=== PATIENT | female | born 1955 | race Caucasian/White ===

== ENCOUNTER → 2023-07-31 14:07 | Outpatient (REF) | payer MEDICARE, OTHER, SELFPAY ==
[2023-07-31 15:30] LABS: FSH 36.2 mIU/ml; Free T4 0.75 ng/dl (0.78-2.19); Prolactin 10.5 ng/ml (3.0-18.6)
[2023-07-31 15:31] LABS: Free T3 3.01 pg/ml (2.77-5.27)
[2023-07-31 15:44] LABS: TSH 2.82 uIU/ml (0.47-4.68)
== END ==
LOC: REG 14:07
PROVIDERS: ATTENDING PHYSICIAN Nurse Practitioner
DX: I10 Essential (primary) hypertension (principal); E22.9 Hyperfunction of pituitary gland, unspecified; Q28.2 Arteriovenous malformation of cerebral vessels
CPT/HCPCS: 36415; 83001; 83002; 84146; 84439; 84443; 84481

== ENCOUNTER 2023-10-21 14:18 | Inpatient (IN) | payer MEDICARE, OTHER, SELFPAY ==
[2023-10-21] VITALS (9 sets, daily range): BP systolic 138–153; BP diastolic 72–103
--- NOTE | 2023-10-21 10:01 | ED.GENMED ---
History of Present Illness
General
Chief Complaint: Rectal Bleeding
Source: patient and spouse
Exam Limitations: none
Time Seen by Provider: 10/21/23 09:28
Nursing documentation reviewed up to this point in time: agreed with
Travel History
Have you had any contact with someone who has COVID-19?: No
Do you have any symptoms of coronavirus? Fever > 100 degrees, chills, cough, shortness of breath, sore throat, loss of taste or smell, muscle aches, or headache?: No
History of Present Illness
History of Present Illness:
Patient presents to ED secondary to multiple bowel movements at home which contained bloody products. Patient states that she woke up around 2 AM with lower abdominal cramping sensation. Patient got up and took Pepto-Bismol without relief in
symptoms. Shortly afterwards, patient had urge to have bowel movement. She was sitting on the toilet, when she felt nauseous and 'passed out'. She woke up in front of the toilet, with swelling in her forehead and right shoulder pain. Afterwards,
patient was able to stand back up and had small bowel movement, and when she looked, it appeared to be mucousy with blood around it. Since then, patient states that she has had at least 3-4 bowel movements with similar bloody content. Denies
previous history of similar symptoms. Patient recalls having colonoscopy 5 years ago, which showed diverticulosis. Patient does not take any blood thinning medications. Of note, patient has taken 2 doses of doxycycline, which was prescribed by
her primary care physician, secondary to skin irritation in her leg. Patient denies headache. Denies dizziness. No blurred vision. Denies loss of sensation or weakness. However, patient is complaining of right shoulder pain, with movement.
Denies chest pain or shortness of breath. Denies back pain.
Past History
Past History
ED Past Medical History: HTN
ED Past Surgical History: Appendectomy and Gynecological (Hysterectomy, Endometriosis)
Social History
Tobacco: Former smoker
Alcohol: Former
Personal:
Living: with family
Review of Systems
Review of Systems
Allergies reviewed?: Yes
All Other Systems: ROS reviewed and negative except as documented in HPI and ROS
Constitutional: Reports no symptoms; Denies fever
Respiratory: Reports no symptoms; Denies trouble breathing
Cardiac: Reports no symptoms; Denies chest pain
ABD/GI: Reports abdominal pain, nausea and bloody stools; Denies vomiting
: Reports no symptoms
Musculoskeletal: Reports no symptoms
Skin: Reports no symptoms
Neurological: Reports no symptoms
Phy Exam
Physical Exam
Physical Exam:
Physical Exam
General: mild distress, not acutely ill. afebrile
Head: nc/at. eomi
Neck: supple. no meningeal signs.
Heart: s1/s2 regular rate and rhythm, no murmur. equal radial pulses.
Lungs: no acute respiratory distress. clear bilaterally
Abdomen: normal bowel sounds. no distention. mild LLQ/periumbilical tenderness to palpation.
Neuro: alert and oriented. no focal neurological deficits
Skin: no rash
Psychiatric: well kept. interactive and cooperative
Extremities: no edema. no calf tenderness.
Course
Orders/Labs/Results
Orders:
Orders
10/21/23 09:49
CR Shoulder, Trauma - Right Urgent
Comment:
Reason For Exam: trauma, s/p fall
10/21/23 09:50
CT Abd/pelvis W Iv Cont Urgent
Comment:
Reason For Exam: LLQ pain with hematochezia
10/21/23 10:00
0.9% Sodium Chloride 500 ml [Nss] 500 ml IV BOLUS
Ondansetron Injectable [Zofran] 4 mg IV NOW STA
Pantoprazole [Protonix IV] 40 mg IV NOW STA
10/21/23 10:25
Basic Metabolic Panel Urgent
Complete Blood Count/With Diff Urgent
Magnesium Urgent
PTT Urgent
Prothrombin Time Urgent
Urinalysis Reflex To Culture Urgent
Date Specimen was Collected: 10/21/23
Time Specimen was Collected: 10:05
Urine Microscopic Reflex Cult Urgent
10/21/23 11:13
STOOL [C difficile Antigen & Toxins] Urgent
LAVNO Source: Feces/Stool
Specimen Description:
Date Specimen was Collected: 10/21/23
Time Specimen was Collected: 11:05
Stool Culture Urgent
LAVON Source: Feces/Stool
Specimen Description:
Date Specimen was Collected: 10/21/23
Time Specimen was Collected: 11:05
10/21/23 13:39
HYDROmorphone [Dilaudid] 0.5 mg IV NOW STA
10/21/23 13:56
Lactate Level [Lactic Acid] Urgent
10/21/23 14:03
Admit/Transfer Patient As Directed
Co-Sign Provider:
Level of Care: Inpatient admission
Assign to:: Telemetry
Physician / Group: Carlo Hernandes
Diagnosis: Colitis, blood in stool
Reason for Telemetry: Arrhythmia
Date to Stop Telemetry: 10/24/23
Time to Stop Telemetry: 11:00
Reason for Hospitalization: Colitis, blood in stool
Expected length of stay greater than two midnights?: Yes
ELOS- Estimated Length of Stay in days: 3
I certify the patient meets the requirements for IP care: Yes
10/21/23 14:04
Code Status As Directed
Resuscitation Status: Full Code
10/21/23 17:44
0.9% Sodium Chloride 1000 ml [Nss] 1,000 ml IV 100 mls/hr
Acetaminophen [Tylenol] 650 mg PO Q4HPRN PRN
Ondansetron Injectable [Zofran] 4 mg IV Q6HPRN PRN
10/21/23 17:44
Activity As Directed
Activity Level: As Tolerated
Pneumatic Compression Sleeves As Directed
Type: Knee high
Vital Signs As Directed
Frequency: Per unit guidelines
DX Deep Vein Thrombosis Video Routine
10/22/23 06:52
Basic Metabolic Panel IN AM
Complete Blood Count/No Diff IN AM
10/22/23 08:00
Citalopram [Celexa] 30 mg PO DAILY
Lisinopril [Zestril] 40 mg PO DAILY
10/23/23 06:00
Basic Metabolic Panel IN AM
Complete Blood Count/No Diff IN AM
Abnormal Lab Results
10/21/23
10:25
Absolute Neuts (auto) 7.6 H 10^3/uL
(1.4-6.5)
Absolute Lymphs (auto) 0.5 L 10^3/uL
(1.2-3.4)
Neutrophils % 88.2 H %
(42.2-75.2)
Lymphocytes % 5.2 L %
(20.5-51.1)
APTT 21.3 L Sec
(23.4-35.0)
BUN 24 H mg/dl
(7-17)
Glucose 129 H mg/dl
(70-99)
Urine Ketones Trace A
(Negative)
Ur Occult Blood Reflex 4+ A
(Negative)
Urine Bilirubin 1+ A
(Negative)
Leukocyte Esterase Rfl Trace A
(Negative)
Urine RBC 16-20 A /HPF
(0-2)
Urine Bacteria (Reflex) Few A
(Negative)
10/21/23 10:25
10/21/23 10:25
Vital Signs
Initial and Last Documented VS:
Initial Vital Signs
Temp Pulse Resp BP Pulse Ox
97.8 F 74 20 138/90 97
10/21/23 09:15 10/21/23 09:15 10/21/23 09:15 10/21/23 09:15 10/21/23 09:15
Last Documented Vital Signs
Temp Pulse Resp BP Pulse Ox
98.0 F 67 18 139/84 96
10/22/23 08:00 10/22/23 08:00 10/22/23 08:00 10/22/23 08:00 10/22/23 08:00
MDM/Problems Addressed
MDM/Problems Addressed:
Patient with 1 additional bowel movement in ED, noted to be bloody and mucousy appearing.
CT report reviewed and discussed with Dr. Harry, GI physician on-call. Does not recommend antibiotics at this time. Recommends stool culture, hydration, and repeat H&H.
Transfusion consent on the chart.
*Critical Care Note
Total Time (30-74mins, 75-104mins- exclusive of procedures): Not Applicable
ED Attending Note
-
Portions of this chart may have been created with voice recognition software.� Occasional wrong word or��sound alike� substitutions may have occurred due to the inherent limitations of voice recognition software.
Discharge Plan
Departure
Patient Disposition: Admit
Date of Disposition: 10/21/23
Time of Disposition: 13:44
Presentation/result/management discussed w/ accepting MD/DO: Hospitalist
Discharge Problem:
Colitis, GI bleed, Contusion of right shoulder
Interventions
Interventions:
*Risk Screen - Suicide Last Done: 10/21/23 12:00
*General Assessment Last Done: 10/21/23 12:00
*Neglect/Abuse Screening Last Done: 10/21/23 12:00
ED- Fall Risk Assessment Last Done: 10/21/23 12:00
*ED COVID-19 Vaccine History Last Done: 10/21/23 09:22
*Nursing Disposition Last Done: 10/21/23 17:45
XX-Shxbdv-Sckncmkera Assessment Last Done: 10/21/23 12:00
ED- Cardiac Assessment Last Done: 10/21/23 12:00
ED- Pulmonary Assessment Last Done: 10/21/23 12:00
Discharge Date and Time
Discharge Date/Time: 10/21/23 17:30
[2023-10-21] MEDS: NSS 500 IV (10:28)
[2023-10-21 10:35] LABS: % Basophils 0.3 % (0-2); % Eosinophils 0.2 % (0-6); % Immature Granulocytes 0.2 % (0-0.5); % Lymphocytes 5.2 % (20.5-51.1); % Monocytes 5.9 % (1.7-9.3); % Neutrophils 88.2 % (42.2-75.2); Absolute Lymphocytes 0.5 10^3/uL (1.2-3.4); Absolute Monocytes 0.5 10^3/uL (0.1-0.6); Absolute Neutrophils 7.6 10^3/uL (1.4-6.5); Hematocrit 37.8 % (37.0-47.0); Hemoglobin 13.4 g/dL (12.0-16.0); Mean Corp Hgb Conc. 35.4 g/dL (33.0-37.0); Mean Corpuscular Hgb 30.7 pg (27.0-31.0); Mean Corpuscular Volume 86.5 fL (81.0-99.0); Mean Platelet Volume 9.5 fL (7.4-10.4); Nucleated Red Blood Cells % 0 %; Platelet Count 240 10^3/uL (130-400); Red Blood Cell Count 4.37 10^6/uL (4.20-5.40); Red Cell Dist. Width 13.4 % (11.5-14.5); White Blood Cell Count 8.6 10^3/uL (4.8-10.8)
[2023-10-21] MEDS: PROTONIX IV 40 MG IV (10:38)
[2023-10-21] MEDS: ZOFRAN 4 MG IV ×2 (10:38→18:37)
[2023-10-21 10:40] LABS: INR 1.07; PT 13.7 Sec (11.4-14.6)
[2023-10-21 10:45] LABS: Blood Urea Nitrogen 24 mg/dl (7-17); Carbon Dioxide 24 mmol/L (22-30); Chloride 106 mmol/L (98-107); Glucose 129 mg/dl (70-99); Magnesium 1.9 mg/dl (1.6-2.3); Sodium 139 mmol/L (135-145); eGFR > 60.00
[2023-10-21 11:04] LABS: Urine Albumin Trace (Neg - Trace); Urine Bilirubin 1+ (Negative); Urine Character Clear (Clear); Urine Glucose Negative (Negative); Urine Ketone Trace (Negative); Urine Leukocyte Trace (Negative); Urine Nitrite Negative (Negative); Urine Occult Blood 4+ (Negative); Urine Urobilinogen Negative (Neg - 1+)
[2023-10-21 11:05] LABS: Urine Color Yellow
[2023-10-21 11:14] LABS: APTT 21.3 Sec (23.4-35.0)
[2023-10-21 11:34] LABS: Urine Squamous Cell 16-20 /LPF (Few)
[2023-10-21 11:39] LABS: Urine Bacteria Few (Negative); Urine Red Blood Cell 16-20 /HPF (0-2)
[2023-10-21] MEDS: DILAUDID 0.5 MG IV (13:57)
--- NOTE | 2023-10-21 14:02 | HPS.HSE ---
Addendum entered and electronically signed by Carlo Hernandes MD 10/21/23 16:07:
Discussed with GI
witholding abx until cdiff/STEC ruled out
Original Note:
Family Physician
-
Family Physician: CARLOS Aguero
Chief Complaint
-
Bright red blood per rectum
History of Present Illness
Patient is 68-year-old female with past medical history of essential hypertension, depression, obesity, right femur ORIF came to ER with new onset of bright red blood in stool and left-sided flank pain starting in night. Patient woke up with
symptoms and 2 in the morning and have fresh blood and no stool. Patient was sitting on commode when all of a sudden patient felt diaphoretic/nauseous and passed out briefly. Patient had of having nonbloody vomiting and ended up hitting head.
Broke one lower jaw tooth.
Patient continued to have further blood containing bowel movement without any stool and came to ER for further evaluation.
In ER patient denies of having any excessive left flank pain. Not feeling nauseous no further vomiting episode. Denies having any chest discomfort/palpitations/dizziness. No dysuria.
Patient does not have any previous episodes of GI issues. Had screening colonoscopy with family history of colon cancer, last colonoscopy patient was found to having diverticular disease only
Medical History
Past Medical History
Past Medical History: Reports Other
Additional Past Medical History:
essential hypertension, depression, obesity, right femur ORIF
Past Surgical History: Reports Other
Social History
Tobacco: Former Smoker
Alcohol: None
Drug: None
Personal:
Living: With Family
Family History
Family History: Not pertinent
Allergies / Home Medications
Allergies reflects when Allergies were last updated in [employer].
Home Medications with original date entered in [employer]
Allergy/Medication List:
Allergies
Allergy/AdvReac Type Severity Reaction Status Date / Time
No Known Allergies Allergy Verified 10/21/23 09:26
Home Medications
citalopram 20 mg tablet 30 mg PO DAILY 02/19/20
melatonin 5 mg tablet 10 mg PO HS 02/24/20
multivitamin with folic acid 400 mcg tablet (Tab-A-Delilah) 1 tab PO DAILY 02/24/20
amlodipine 10 mg tablet 10 mg PO DAILY 10/21/23
bimatoprost 0.01 % eye drops (Lumigan) 1 drp BOTH EYES QPM 10/21/23
calcium carbonate 500 mg PO DAILY 10/21/23
doxycycline hyclate 100 mg tablet 100 mg PO BID 10/21/23
labetalol 100 mg tablet 100 mg PO BID 10/21/23
levetiracetam 500 mg tablet 500 mg PO DAILY 10/21/23
lisinopril 40 mg tablet 40 mg PO DAILY 10/21/23
semaglutide 0.25 mg or 0.5 mg (2 mg/3 mL) subcutaneous pen injector (Ozempic) 0.5 mg SC CHAPMAN 10/21/23
Review of Systems
-
A 12 point ROS was completed and negative except as noted: Yes
Physical Exam
Vital Signs
Vital Signs
Temp Pulse Resp BP Pulse Ox
97.8 F 74 20 153/93 97
10/21/23 09:15 10/21/23 09:15 10/21/23 09:15 10/21/23 13:14 10/21/23 09:15
Physical Exam
General: Well Developed, Well Nourished and No Apparent Distress
HEENT: NormoCephalic, Moist mucous membranes and Atraumatic
Respiratory: Clear
Cardiac: S1/S2 and Regular Rhythm; No Murmur or Rub
GI: Soft, Non Distended, Normal Bowel Sounds and Tender (Left upper quadrant); No Organomegaly
Rectal: Deferred by Provider
Musculoskeletal: No Clubbing, No Cyanosis and No Edema
Skin: No Rash
Neuro: Nonfocal/grossly intact
Laboratory Results
-
10/21/23 10:25
10/21/23 10:25
Laboratory Results
PT 13.7 Sec (11.4-14.6) 10/21/23 10:25
INR 1.07 10/21/23 10:25
APTT 21.3 Sec (23.4-35.0) L 10/21/23 10:25
Total Bilirubin Cancelled 10/21/23 10:25
AST Cancelled 10/21/23 10:25
ALT Cancelled 10/21/23 10:25
Alkaline Phosphatase Cancelled 10/21/23 10:25
Data Reviewed
-
CT Scan: Image Personally Visualized and interpreted, Report Reviewed by me, Discussed with Physician, Discussed with Patient and Discussed with Family
Lab Data: Labs Reviewed by me, Discussed with Patient and Discussed with Family
Impression/Plan
-
1. Acute colitis -infectious versus ischemic
Hematochezia
Epigastric/left flank pain
-Patient given with new onset of pain and blood per rectum waking patient up in the night
-Patient denies of having history of previous episodes of this. No reported history of recurrent abdominal pain.
-CT abdomen pelvis with IV contrast in ER showing inflammatory changes involving colon extending from splenic flexure to rectum
-Potential differential of infectious colitis versus ischemic colitis versus other
-Stool studies have been collected for C. difficile/stool culture in ER. Maintain on IV empiric levofloxacin and Flagyl
-In light of acute onset of symptoms with only blood coming out per rectum question of colonic ischemia remains, lactic acid 0.7 follow-up has been ordered.
-GI has been consulted for further help as well.
-Patient currently vitally stable and not having excessive pain. Will require colorectal surgery involvement if concern of worsening ischemic colitis
-Maintain patient on IV fluid and clear liquid diet for now
2. Vasovagal syncope
Head injury
-Patient was apparently sitting up on commode when felt diaphoretic/cold followed by passing out briefly
-Ended up hitting head although no visible laceration.
-CT head without contrast ordered.
3. Essential hypertension
-Continue Norvasc/labetalol/losartan
4. Depression
-maintain on citalopram
DVT PPX - scd
FUll code
Care plan discussed with GI
Total time spent : 78 mins
I personally saw and examined the patient.
I have reviewed all diagnostic interpretations and treatment plans as written.
Time includes patient management by me, time spent at the patients bedside, time to review lab and imaging results, discussing patient care, documentation in the medical record, and time spent with the family or caregiver and discussing care plan
with RN/Consultants.
[2023-10-21 14:28] LABS: Lactic Acid 0.7 mmol/L (0.7-2.0)
--- NOTE | 2023-10-21 15:25 | CON.GI ---
Consultation
-
Date/Time Consultation Performed: 10/21/23
Performing Provider: Howard Harry MD
Reason for Consultation: abdominal pain, diarrhea
Medical History
Chief Complaint / HPI
Chief Complaint: abdominal pain, diarrhea
History of Present Illness:
The patient is a 68-year-old female with past medical history as noted with abdominal pain and diarrhea. She was in her usual state of health until last evening when she woke with abdominal pain. She went to the bathroom then had syncopal episode
on the toilet, and had mucousy, bloody stools. She had several episodes of this along with crampy abdominal pain which was severe was brought to the emergency room. On presentation she was found to have a normal white count, normal hemoglobin,
though CT scan showed moderate to severe colitis from the transverse to the rectum. She had several bowel movements here, bloody with mucousy stools, there is actually feeling better with less abdominal pain. He has no fever or chills. She denies
any recent antibiotics or travel. She had no odd food recently or sick contacts. Her last colonoscopy in [address] Burch showed small polyp otherwise essentially unremarkable. She never had symptoms like this before, and usually does not
have any abdominal pain or other GI symptoms. She feels that she was a bit dehydrated yesterday she was not drinking as much water during the day.
Past Medical History
Past Medical History: Other (essential hypertension, depression, obesity)
Past Surgical History: Other (right femur ORIF)
Social History
Tobacco: Former Smoker
Alcohol: None
Family History
Family History: Reviewed & Not Pertinent
Allergies / Home Medications
Allergy/AdvReac Type Severity Reaction Status Date / Time
No Known Allergies Allergy Verified 10/21/23 09:26
�Medication �Instructions �Recorded
citalopram 20 mg tablet 30 mg PO DAILY 02/19/20
melatonin 5 mg tablet 10 mg PO HS 02/24/20
multivitamin with folic acid 400 1 tab PO DAILY 02/24/20
mcg tablet (Tab-A-Delilah)
amlodipine 10 mg tablet 10 mg PO DAILY 10/21/23
bimatoprost 0.01 % eye drops 1 drp BOTH EYES QPM 10/21/23
(Lumigan)
calcium carbonate 500 mg PO DAILY 10/21/23
doxycycline hyclate 100 mg tablet 100 mg PO BID 10/21/23
labetalol 100 mg tablet 100 mg PO BID 10/21/23
levetiracetam 500 mg tablet 500 mg PO DAILY 10/21/23
lisinopril 40 mg tablet 40 mg PO DAILY 10/21/23
semaglutide 0.25 mg or 0.5 mg (2 0.5 mg SC CHAPMAN 10/21/23
mg/3 mL) subcutaneous pen injector
(Ozempic)
Review of Systems
-
All other systems: A 12 pt ROS was Negative except as stated above in HPI
Vital Signs
Temp Pulse Resp BP Pulse Ox
97.8 F 80 17 142/87 95
10/21/23 09:15 10/21/23 14:05 10/21/23 14:05 10/21/23 14:05 10/21/23 14:05
Physical Exam
Exam
General: NAD
HEENT: MMM, anicteric, no lymphadenopathy
Heart: Regular, no murmurs
Lungs: CTA bilaterally
Abdomen: normal bowel sounds, soft, minimal left-sided tenderness, no rebound or guarding, no masses, bruits or ascites
Extremeties: no edema
Skin: no rashes
Results
WBC 8.6 10^3/uL (4.8-10.8) 10/21/23 10:25
Hgb 13.4 g/dL (12.0-16.0) 10/21/23 10:25
Hct 37.8 % (37.0-47.0) 10/21/23 10:25
MCV 86.5 fL (81.0-99.0) 10/21/23 10:25
Plt Count 240 10^3/uL (130-400) 10/21/23 10:25
Absolute Neuts (auto) 7.6 10^3/uL (1.4-6.5) H 10/21/23 10:25
PT 13.7 Sec (11.4-14.6) 10/21/23 10:25
INR 1.07 10/21/23 10:25
APTT 21.3 Sec (23.4-35.0) L 10/21/23 10:25
Sodium 139 mmol/L (135-145) 10/21/23 10:25
Potassium mmol/L (3.5-5.1) 10/21/23 10:25
Chloride 106 mmol/L (98-107) 10/21/23 10:25
Carbon Dioxide 24 mmol/L (22-30) 10/21/23 10:25
BUN 24 mg/dl (7-17) H 10/21/23 10:25
Creatinine 0.9 mg/dL (0.6-1.0) 10/21/23 10:25
Calcium 10.0 mg/dl (8.4-10.2) 10/21/23 10:25
Total Bilirubin Cancelled 10/21/23 10:25
AST Cancelled 10/21/23 10:25
ALT Cancelled 10/21/23 10:25
Alkaline Phosphatase Cancelled 10/21/23 10:25
Diagnostic Image Results:
CT:
IMPRESSION: CT findings compatible with moderate to severe colitis extending contiguously from the rectum through the splenic flexure and the left side of the transverse colon. This most likely represents infectious colitis with main differential
consideration of inflammatory bowel disease. There is no evidence for free intraperitoneal air.
Status post hysterectomy.
Bony degenerative changes as described.
Prior GI Procedures:
EGD:
Colonoscopy:
10/2019:
Findings:
The perianal and digital rectal examinations were normal.
The terminal ileum appeared normal.
A 3 mm polyp was found in the transverse colon. The polyp was sessile.
The polyp was removed with a jumbo cold forceps. Resection and retrieval
were complete.
No additional abnormalities were found on retroflexion.
Assessment / Plan
-
1. Colitis: Acute, possibly watershed ischemia as she was admittedly a little dehydrated yesterday, versus infectious. At this point she is nontoxic-appearing, has no leukocytosis or fever and exam is benign. Will await stool studies, continue
supportive care with IV fluids and clear liquid diet. Assuming she continues to improve would plan colonoscopy in [address] Burch.
-
-
Thank you for consultation and allowing me to participate in the patient's care. Please call the education courses sales representative GI physician during the after hours with any questions or concerns.
[2023-10-21] MEDS: TRANDATE 100 MG PO (18:22)
[2023-10-21] MEDS: NSS 1000 IV (18:24)
[2023-10-21] MEDS: ZESTRIL 40 MG PO (20:04)
[2023-10-21] MEDS: NORVASC 10 MG PO (20:04)
[2023-10-21] MEDS: LUMIGAN 0.01% 1 DROP BOTH EYES (20:05)
[2023-10-21] MEDS: DILAUDID 0.25 MG IV (23:29)
[2023-10-22 03:44] VITALS: BP 123/70
[2023-10-22] MEDS: NSS 1000 IV ×2 (05:00→15:40)
--- NOTE | 2023-10-22 06:08 | PTCARENOTE ---
Pt had multiple liquid bright red blood with some clot BM. Asymptomatic.
[2023-10-22 07:18] LABS: Hematocrit 34.9 % (37.0-47.0); Hemoglobin 11.7 g/dL (12.0-16.0); Mean Corp Hgb Conc. 33.5 g/dL (33.0-37.0); Mean Corpuscular Hgb 30.5 pg (27.0-31.0); Mean Corpuscular Volume 90.9 fL (81.0-99.0); Mean Platelet Volume 9.7 fL (7.4-10.4); Platelet Count 205 10^3/uL (130-400); Red Blood Cell Count 3.84 10^6/uL (4.20-5.40); Red Cell Dist. Width 13.8 % (11.5-14.5); White Blood Cell Count 7.6 10^3/uL (4.8-10.8)
[2023-10-22 07:46] LABS: Blood Urea Nitrogen 13 mg/dl (7-17); Calcium 8.7 mg/dl (8.4-10.2); Carbon Dioxide 23 mmol/L (22-30); Chloride 108 mmol/L (98-107); Glucose 94 mg/dl (70-99); Potassium 3.8 mmol/L (3.5-5.1); Sodium 139 mmol/L (135-145); eGFR > 60.00
[2023-10-22 08:00] VITALS: BP 139/84
[2023-10-22] MEDS: CELEXA 30 MG PO (09:09)
[2023-10-22] MEDS: KEPPRA 500 MG PO (09:09)
[2023-10-22] MEDS: NORVASC 10 MG PO (09:09)
[2023-10-22] MEDS: TRANDATE 100 MG PO ×2 (09:10→20:23)
[2023-10-22] MEDS: ZESTRIL 40 MG PO (09:10)
[2023-10-22 11:00] VITALS: BP 124/78; BP 98/44
[2023-10-22 11:33] LABS: Lactic Acid 0.9 mmol/L (0.7-2.0)
--- NOTE | 2023-10-22 14:25 | W.PN.HOSP.TC ---
Today's Communication/Plan
-
f/u stool cs report
continue holding abx
monitor hbg, repeat at 1600
Assessment / Plan
Assessment / Plan
1. Acute colitis -infectious versus ischemic
Hematochezia - Ongoing
Epigastric/left flank pain
Acute blood loss anemia
-Patient given with new onset of pain and blood per rectum waking patient up in the night
-Patient denies of having history of previous episodes of this. No reported history of recurrent abdominal pain.
-CT abdomen pelvis with IV contrast in ER showing inflammatory changes involving colon extending from splenic flexure to rectum
-Potential differential of infectious colitis versus ischemic colitis versus other
-C diff neg. stool culture pending. Antibiotics to be held until STEC ruled out.
-In light of acute onset of symptoms with only blood coming out per rectum question of colonic ischemia remains, lactic acid 0.7 in ER > repeat 0.9
-GI following and help appreciated.
2. Vasovagal syncope
Head injury
-Patient was apparently sitting up on commode when felt diaphoretic/cold followed by passing out briefly
-Ended up hitting head although no visible laceration.
-CT head without contrast did not show new changes.
3. Porencephaly right parietal lobe
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
- CT head images reviewed.
4. Essential hypertension
-Continue Norvasc/labetalol/losartan
5. Depression
-maintain on citalopram
DVT PPX - scd
FUll code
Anticipated Discharge: 24 - 48 hours
Subjective/Interval History
-
Date of Service: October 22, 2023
still have blood in stool, 8-10 BM in night
no dizziness/syncope
Objective Data
-
Labs:
Laboratory Results
10/22/23 10/22/23
06:52 16:00
WBC 7.6 Pending
Hgb 11.7 L Pending
Hct 34.9 L Pending
Plt Count 205 Pending
Sodium 139
Potassium 3.8
Chloride 108 H
Carbon Dioxide 23
BUN 13
Creatinine 0.8
Glucose 94
Calcium 8.7
Vital Signs:
Vital Signs
Temp Pulse Resp BP Pulse Ox
98.0 F 67 18 139/84 96
10/22/23 08:00 10/22/23 08:00 10/22/23 08:00 10/22/23 08:00 10/22/23 08:00
I&O
10/21/23 10/22/23 10/23/23
06:59 06:59 06:59
Intake Total 1340 / 1340
Balance 1340 / 1340
Review of Systems
-
Respiratory: Reports No Symptoms
Cardiac: Reports No Symptoms
Abdomen/GI: Reports Diarrhea
Physical Exam
-
General: No Apparent Distress and Comfortable
HEENT: Negative Oxygen
Respiratory: Clear to Auscultation
Cardiac: Regular Rhythm and S1/S2; Negative Murmur or Rub
GI: Soft, Nontender, Nondistended and Normal Bowel Sounds
Musculoskeletal: No Edema
Neuro: Awake, Alert, Oriented, No Motor Deficits and Nonfocal/Grossly Intact
Psych: Calm
--- NOTE | 2023-10-22 14:56 | W.PN.GI.CBS2 ---
Today's Communication / Plan
-
add antibiotics, monitor pain and bleeding
Assessment / Plan
-
1. Colitis: Acute, possibly watershed ischemia as she was admittedly a little dehydrated yesterday, versus infectious. Atypical involves rectum per CT for ischemia. Still with abd pain and passing blood - will start empiric abx. Will await stool
studies, continue supportive care with IV fluids and clear liquid diet. Will need inpatient vs oupatient flex sig vs cscope pending clinical status.
Subjective
Subjective
Date of Service: October 22, 2023
Pain present but better
Still passing blood 5 times today
Objective
Data Reviewed
Laboratory Data:
Laboratory Results
10/22/23 06:52
Laboratory Results
PT 13.7 Sec (11.4-14.6) 10/21/23 10:25
INR 1.07 10/21/23 10:25
APTT 21.3 Sec (23.4-35.0) L 10/21/23 10:25
Magnesium 1.9 mg/dl (1.6-2.3) 10/21/23 10:25
Total Bilirubin Cancelled 10/21/23 10:25
AST Cancelled 10/21/23 10:25
ALT Cancelled 10/21/23 10:25
Alkaline Phosphatase Cancelled 10/21/23 10:25
Vital Signs and I&O:
Vital Signs
Temp Pulse Resp BP Pulse Ox
98.0 F 67 18 139/84 96
10/22/23 08:00 10/22/23 08:00 10/22/23 08:00 10/22/23 08:00 10/22/23 08:00
I&O
10/21/23 10/22/23 10/23/23
06:59 06:59 06:59
Intake Total 1340 / 1340
Balance 1340 / 1340
Physical Exam
Physical Exam
GI: Tender
[2023-10-22 15:33] VITALS: BP 134/80
[2023-10-22 16:29] LABS: Hematocrit 33.6 % (37.0-47.0); Hemoglobin 11.5 g/dL (12.0-16.0); Mean Corp Hgb Conc. 34.2 g/dL (33.0-37.0); Mean Corpuscular Hgb 30.8 pg (27.0-31.0); Mean Corpuscular Volume 90.1 fL (81.0-99.0); Mean Platelet Volume 9.4 fL (7.4-10.4); Platelet Count 198 10^3/uL (130-400); Red Blood Cell Count 3.73 10^6/uL (4.20-5.40); Red Cell Dist. Width 13.9 % (11.5-14.5)
--- NOTE | 2023-10-22 16:58 | CM ---
Patient with Dx Acute colitis, Vasovagal syncope, Head injury. PT Screen; No skilled PT needed.
Spoke with patient who resides with her in a one story house with 3 HARPER.
The patient has been independent in ADLs and ambulation.
The patient has no DME, prior VN or SNF.
PCP - Sophia Bailey
Pharmacy - [facility]
No CM d/c needs identified.
Plan home.
[2023-10-22] MEDS: LUMIGAN 0.01% 1 DROP BOTH EYES (17:13)
[2023-10-22] MEDS: ZOSYN 50 IV ×2 (17:13→21:29)
[2023-10-22 19:44] VITALS: BP 121/69
[2023-10-22] MEDS: TYLENOL 650 MG PO (21:38)
[2023-10-22 23:21] VITALS: BP 110/60
[2023-10-23] MEDS: NSS 1000 IV (02:11)
[2023-10-23 03:20] VITALS: BP 109/63
[2023-10-23] MEDS: ZOSYN 50 IV ×3 (04:17→15:20)
[2023-10-23 07:00] VITALS: BP 118/69
[2023-10-23 07:45] LABS: Hematocrit 33.6 % (37.0-47.0); Hemoglobin 11.3 g/dL (12.0-16.0); Mean Corp Hgb Conc. 33.6 g/dL (33.0-37.0); Mean Corpuscular Hgb 30.1 pg (27.0-31.0); Mean Corpuscular Volume 89.4 fL (81.0-99.0); Mean Platelet Volume 9.9 fL (7.4-10.4); Platelet Count 212 10^3/uL (130-400); Red Blood Cell Count 3.76 10^6/uL (4.20-5.40); Red Cell Dist. Width 14.1 % (11.5-14.5); White Blood Cell Count 7.4 10^3/uL (4.8-10.8)
--- NOTE | 2023-10-23 08:17 | W.PN.GI.CBS2 ---
Today's Communication / Plan
-
Please see assessment and plan for details.
Assessment / Plan
-
1. Colitis: Acute, possibly watershed ischemia as she was admittedly a little dehydrated yesterday, versus infectious. Atypical involves rectum per CT for ischemia. She is much improved today, with no further bleeding and formed stools. Will
advance to low residue diet, and if tolerates is okay to DC from a GI standpoint, will plan outpatient colonoscopy in [address] Burch.
Subjective
Subjective
Date of Service: October 23, 2023
Patient feeling much better overall, no further blood, stool starting to form last night, still some pain though much improved, no fever or chills.
Objective
Data Reviewed
Laboratory Data:
Laboratory Results
10/23/23 06:19
Laboratory Results
PT 13.7 Sec (11.4-14.6) 10/21/23 10:25
INR 1.07 10/21/23 10:25
APTT 21.3 Sec (23.4-35.0) L 10/21/23 10:25
Magnesium 1.9 mg/dl (1.6-2.3) 10/21/23 10:25
Total Bilirubin Cancelled 10/21/23 10:25
AST Cancelled 10/21/23 10:25
ALT Cancelled 10/21/23 10:25
Alkaline Phosphatase Cancelled 10/21/23 10:25
Vital Signs and I&O:
Vital Signs
Temp Pulse Resp BP Pulse Ox
98.2 F 58 14 118/69 95
10/23/23 07:00 10/23/23 07:00 10/23/23 07:00 10/23/23 07:00 10/23/23 07:00
I&O
10/22/23 10/23/23 10/24/23
06:59 06:59 06:59
Intake Total 1340 / 1340 1630 / 1630
Balance 1340 / 1340 1630 / 1630
Physical Exam
Physical Exam
General: NAD
Abdomen: normal bowel sounds, soft, mild though improved left-sided tenderness, no masses or bruits, no ascites
[2023-10-23 08:34] LABS: Blood Urea Nitrogen 7 mg/dl (7-17); Calcium 8.4 mg/dl (8.4-10.2); Carbon Dioxide 23 mmol/L (22-30); Chloride 113 mmol/L (98-107); Estimated Creatinine Clearance 69 ml/min; Glucose 89 mg/dl (70-99); Potassium 4.3 mmol/L (3.5-5.1); Sodium 141 mmol/L (135-145); eGFR > 60.00
[2023-10-23] MEDS: NORVASC 10 MG PO (09:09)
[2023-10-23] MEDS: CELEXA 30 MG PO (09:09)
[2023-10-23] MEDS: KEPPRA 500 MG PO (09:12)
[2023-10-23] MEDS: ZESTRIL 40 MG PO (09:12)
[2023-10-23 11:00] VITALS: BP 119/64
[2023-10-23] MEDS: TRANDATE PO (11:22)
--- NOTE | 2023-10-23 12:26 | W.PN.HOSP.TC ---
Addendum entered and electronically signed by Blayne Cheung MD 10/23/23 16:50:
[id number]
Original Note:
Today's Communication/Plan
-
CBC and BMP outpatient
Colonoscopy in 6 weeks
would hold on abx at this time
F/u GI, PCP, Neurology outpatient
Assessment / Plan
Assessment / Plan
#Acute colitis -ischemic versus inflammatory
#Acute Blood Loss Anemia
#Hematochezia, improved
� Hematochezia, pain improving
� Hemoglobin stabilized
� Stool cultures negative
� After discussion with GI, would not send on antibiotics
� Follow-up in 6 weeks for colonoscopy with GI
� Tolerating low residue diet, continue
� Explained that if worsening symptoms, return back to the hospital
# Vasovagal syncope
Head injury
-Patient was apparently sitting up on commode when felt diaphoretic/cold followed by passing out briefly
-Most likely 2/2 to GI Bleed
Ended up hitting head although no visible laceration.
-CT head without contrast did not show new changes.
-Cont tele
#Porencephaly right parietal lobe
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
- CT head images reviewed.
-F/u Neurology outpatient
#Essential hypertension
-Continue Norvasc/labetalol/losartan
#Depression
-maintain on citalopram
DVT PPX - scd
Full code
More than 30 minutes spent in discharge including
Final examination of the patient
Summarizing hospital stay
Instructions for continuing care to all relevant caregivers
Preparation of discharge records, prescriptions, and referral forms
Total time spent (35 in minutes):
Anticipated Discharge: Today
Subjective/Interval History
-
Date of Service: October 23, 2023
Symptoms have improved, tolerating diet this morning
Objective Data
-
Labs:
Laboratory Results
10/23/23
06:19
WBC 7.4
Hgb 11.3 L
Hct 33.6 L
Plt Count 212
Sodium 141
Potassium 4.3
Chloride 113 H
Carbon Dioxide 23
BUN 7
Creatinine 0.8
Glucose 89
Calcium 8.4
Vital Signs:
Vital Signs
Temp Pulse Resp BP Pulse Ox
98.2 F 67 16 119/64 96
10/23/23 11:00 10/23/23 11:00 10/23/23 11:00 10/23/23 11:00 10/23/23 11:00
I&O
10/22/23 10/23/23 10/24/23
06:59 06:59 06:59
Intake Total 1340 / 1340 1630 / 1630
Balance 1340 / 1340 1630 / 1630
Review of Systems
-
History Source: Patient
All other systems: Not reviewed unless documented
Data Reviewed
-
CT Scan: Image personally visualized and interpreted and Report Reviewed by me
Labs: Labs Reviewed by me
--- NOTE | 2023-10-23 12:33 | W.DS.TRANS ---
DC Summary - [employer]
-
Discharge Instructions:
Discharge Diagnosis/Procedures Colitis, acute�possible worsening ischemia
Diet Low Cholesterol,Low Fat,Low Residue
Activity As tolerated
Blood Work CBC and BMP within 1 week with PCP
Instructions:
Stand-Alone Forms:
Changes to Home Medications: No
Discharge Medications:
DC Medications w/original date entered in [employer]
citalopram 20 mg tablet 30 mg PO DAILY 02/19/20
melatonin 5 mg tablet 10 mg PO HS 02/24/20
multivitamin with folic acid 400 mcg tablet (Tab-A-Delilah) 1 tab PO DAILY 02/24/20
amlodipine 10 mg tablet 10 mg PO DAILY 10/21/23
bimatoprost 0.01 % eye drops (Lumigan) 1 drp BOTH EYES QPM 10/21/23
calcium carbonate 500 mg PO DAILY 10/21/23
labetalol 100 mg tablet 100 mg PO BID 10/21/23
levetiracetam 500 mg tablet 500 mg PO DAILY 10/21/23
lisinopril 40 mg tablet 40 mg PO DAILY 10/21/23
semaglutide 0.25 mg or 0.5 mg (2 mg/3 mL) subcutaneous pen injector (Ozempic) 0.5 mg SC CHAPMAN 10/21/23
Home Medication Changes
na
Pending Results: No
[2023-10-23 15:00] VITALS: BP 120/63
== END 2023-10-23 16:46 | disposition home or self-care (01) | DRG 392 ==
LOC: 4 WEST ACU 14:18
PROVIDERS: ADMITTING PHYSICIAN Hospitalist; ATTENDING PHYSICIAN Internal Medicine; EMERGENCY PHYSICIAN Emergency Medicine; FAMILY PHYSICIAN Nurse Practitioner; OTHER PHYSICIAN Internal Medicine Gastroenterology
DX: K57.30 Diverticulosis of large intestine without perforation or abscess without bleeding (principal); K55.9 Vascular disorder of intestine, unspecified; D62 Acute posthemorrhagic anemia; Q04.6 Congenital cerebral cysts; Z87.891 Personal history of nicotine dependence; I10 Essential (primary) hypertension; F32.A Depression, unspecified
CPT/HCPCS: 70450; 73030; 74177; 80048; 81003; 81015; 83605; 83735; 85025; 85027; 85610; 85730; 87045; 87046; 87324; 87427; 87449; 96361; 96374; 96375; 99285; Q9967

== ENCOUNTER → 2023-10-27 14:26 | Outpatient (REF) | payer MEDICARE, OTHER, SELFPAY ==
[2023-10-27 15:01] LABS: % Basophils 0.7 % (0-2); % Eosinophils 2.6 % (0-6); % Immature Granulocytes 0.2 % (0-0.5); % Lymphocytes 27.5 % (20.5-51.1); % Monocytes 8.1 % (1.7-9.3); % Neutrophils 60.9 % (42.2-75.2); Absolute Eosinophils 0.1 10^3/uL (0-0.7); Absolute Lymphocytes 1.3 10^3/uL (1.2-3.4); Absolute Monocytes 0.4 10^3/uL (0.1-0.6); Absolute Neutrophils 2.8 10^3/uL (1.4-6.5); Hematocrit 35.8 % (37.0-47.0); Mean Corp Hgb Conc. 33.5 g/dL (33.0-37.0); Mean Corpuscular Hgb 30.2 pg (27.0-31.0); Mean Corpuscular Volume 89.9 fL (81.0-99.0); Mean Platelet Volume 9.4 fL (7.4-10.4); Nucleated Red Blood Cells % 0 %; Platelet Count 296 10^3/uL (130-400); Red Blood Cell Count 3.98 10^6/uL (4.20-5.40); Red Cell Dist. Width 13.9 % (11.5-14.5); White Blood Cell Count 4.5 10^3/uL (4.8-10.8)
[2023-10-27 15:21] LABS: ALT (SGPT) 15 U/L (0-35); AST (SGOT) 19 U/L (14-36); Albumin 4.4 g/dl (3.5-5.0); Alkaline Phosphatase 34 U/L (38-126); Blood Urea Nitrogen 17 mg/dl (7-17); Calcium 10.6 mg/dl (8.4-10.2); Carbon Dioxide 25 mmol/L (22-30); Chloride 104 mmol/L (98-107); Glucose 102 mg/dl (70-99); Iron 77 ug/dl (37-170); Potassium 4.3 mmol/L (3.5-5.1); Sodium 139 mmol/L (135-145); Total Bilirubin 0.3 mg/dl (0.2-1.3); Total Protein 6.7 g/dl (6.3-8.2); eGFR > 60.00
[2023-10-27 15:30] LABS: Percent Saturation 26 % (20-50); Total Iron Binding Capacity 287 ug/dl (265-497)
[2023-10-27 15:38] LABS: Vitamin D, 25-OH*** 48.1 ng/mL (30-80)
[2023-10-27 15:56] LABS: Ferritin 89.1 ng/ml (11.1-264.0)
[2023-10-27 17:11] LABS: Vitamin B12 316 pg/ml (239-931)
== END ==
LOC: REG 14:26
PROVIDERS: ATTENDING PHYSICIAN Internal Medicine Rheumatology; FAMILY PHYSICIAN Nurse Practitioner
DX: E55.9 Vitamin D deficiency, unspecified (principal); K52.9 Noninfective gastroenteritis and colitis, unspecified; R55 Syncope and collapse; D64.9 Anemia, unspecified; T30.0 Burn of unspecified body region, unspecified degree; K92.2 Gastrointestinal hemorrhage, unspecified; Z79.899 Other long term (current) drug therapy
CPT/HCPCS: 36415; 80053; 82306; 82607; 82728; 83540; 83550; 85025

== ENCOUNTER → 2023-11-06 16:19 | Outpatient (REF) | payer MEDICARE, OTHER, SELFPAY | LOC: RAD 16:19 | PROVIDERS: ATTENDING PHYSICIAN Internal Medicine | DX: R76.8 Other specified abnormal immunological findings in serum (principal) | CPT/HCPCS: 76700 ==

== ENCOUNTER → 2023-12-06 06:45 | Outpatient (REF) | payer MEDICARE, OTHER, SELFPAY | LOC: RAD 06:45 | PROVIDERS: ATTENDING PHYSICIAN Nurse Practitioner | DX: I65.23 Occlusion and stenosis of bilateral carotid arteries (principal) | CPT/HCPCS: 93880 ==

== ENCOUNTER → 2024-02-06 06:14 | Day surgery (SDC) | payer MEDICARE, OTHER, SELFPAY | LOC: GI 06:14 | PROVIDERS: ATTENDING PHYSICIAN Internal Medicine Gastroenterology | DX: D12.0 Benign neoplasm of cecum (principal); D12.3 Benign neoplasm of transverse colon; K63.89 Other specified diseases of intestine; K57.30 Diverticulosis of large intestine without perforation or abscess without bleeding; Z80.0 Family history of malignant neoplasm of digestive organs | CPT/HCPCS: 45380; 88305 ==

== ENCOUNTER → 2024-05-14 09:29 | Outpatient (REF) | payer MEDICARE, OTHER, SELFPAY ==
[2024-05-14 11:05] LABS: ALT (SGPT) 16 U/L (0-35); AST (SGOT) 20 U/L (14-36); Albumin 4.8 g/dl (3.5-5.0); Alkaline Phosphatase 25 U/L (38-126); Blood Urea Nitrogen 23 mg/dl (7-17); Calcium 9.6 mg/dl (8.4-10.2); Carbon Dioxide 27 mmol/L (22-30); Chloride 103 mmol/L (98-107); Glucose 94 mg/dl (70-99); Potassium 4.5 mmol/L (3.5-5.1); Sodium 140 mmol/L (135-145); Total Bilirubin 0.5 mg/dl (0.2-1.3); Total Protein 7.3 g/dl (6.3-8.2); eGFR > 60.00
[2024-05-14 11:23] LABS: Vitamin D, 25-OH*** 42.8 ng/mL (30-80)
[2024-05-16 10:13] LABS: Intact PTH 62.1 pg/ml (13.6-85.8)
== END ==
LOC: REG 09:29
PROVIDERS: ATTENDING PHYSICIAN Internal Medicine Rheumatology; FAMILY PHYSICIAN Nurse Practitioner
DX: E55.9 Vitamin D deficiency, unspecified (principal); E83.52 Hypercalcemia; M81.0 Age-related osteoporosis without current pathological fracture
CPT/HCPCS: 36415; 80053; 82306; 83970

== ENCOUNTER → 2024-06-06 19:36 | Outpatient (REF) | payer MEDICARE, OTHER, SELFPAY | LOC: WDC 19:36 | PROVIDERS: ATTENDING PHYSICIAN Nurse Practitioner | DX: Z12.31 Encounter for screening mammogram for malignant neoplasm of breast (principal); Z12.39 Encounter for other screening for malignant neoplasm of breast | CPT/HCPCS: 77063; 77067 ==

== ENCOUNTER → 2024-08-12 13:23 | Outpatient (REF) | payer MEDICARE, SELFPAY | LOC: DHSLP 13:23 | PROVIDERS: ATTENDING PHYSICIAN Internal Medicine Critical Care Medicine; FAMILY PHYSICIAN Internal Medicine | DX: G47.33 Obstructive sleep apnea (adult) (pediatric) (principal) | CPT/HCPCS: 95800 ==

== ENCOUNTER → 2024-08-27 12:40 | Outpatient (REF) | payer MEDICARE, OTHER, SELFPAY ==
[2024-08-27 13:47] LABS: ALT (SGPT) 12 U/L (0-35); AST (SGOT) 18 U/L (14-36); Albumin 4.3 g/dl (3.5-5.0); Alkaline Phosphatase 32 U/L (38-126); Blood Urea Nitrogen 17 mg/dl (7-17); Calcium 9.7 mg/dl (8.4-10.2); Carbon Dioxide 28 mmol/L (22-30); Chloride 106 mmol/L (98-107); Glucose 97 mg/dl (70-99); Potassium 4.3 mmol/L (3.5-5.1); Sodium 142 mmol/L (135-145); Total Bilirubin 0.6 mg/dl (0.2-1.3); Total Protein 6.8 g/dl (6.3-8.2); eGFR > 60.00
== END ==
LOC: RAD 12:40
PROVIDERS: ATTENDING PHYSICIAN Physician Assistant; FAMILY PHYSICIAN Nurse Practitioner
DX: M81.0 Age-related osteoporosis without current pathological fracture (principal); M25.50 Pain in unspecified joint; M15.9 Polyosteoarthritis, unspecified
CPT/HCPCS: 36415; 77080; 80053; 83970

== ENCOUNTER → 2024-10-25 12:48 | Outpatient (REF) | payer MEDICARE, OTHER, SELFPAY ==
[2024-10-25 13:26] LABS: Ionized Calcium 1.17 mMOL/L (1.15-1.33)
[2024-10-25 14:20] LABS: Calcium 9.7 mg/dl (8.4-10.2)
[2024-10-26 10:36] LABS: Intact PTH 82.8 pg/ml (13.6-85.8)
== END ==
LOC: REG 12:48
PROVIDERS: ATTENDING PHYSICIAN Nurse Practitioner Family; FAMILY PHYSICIAN Nurse Practitioner
DX: E34.9 Endocrine disorder, unspecified (principal)
CPT/HCPCS: 36415; 82330; 83970

== ENCOUNTER → 2024-10-28 10:27 | Outpatient (REF) | payer MEDICARE, OTHER, SELFPAY ==
[2024-10-28 12:36] LABS: Urine Calcium 7.1 mg/dl
[2024-10-28 12:37] LABS: 24 Hour Urine Calcium 85.2 mg/day; 24 Hour Urine Creatinine 0.934 gm/day (0.8-1.8); 24 Hour Urine Total Volume 1200 ml
== END ==
LOC: REG 10:27
PROVIDERS: ATTENDING PHYSICIAN Nurse Practitioner Family; FAMILY PHYSICIAN Nurse Practitioner
DX: E34.9 Endocrine disorder, unspecified (principal)
CPT/HCPCS: 81050; 82340; 82570

== ENCOUNTER 2025-05-15 17:56 | Inpatient (IN) | payer MEDICARE, OTHER, SELFPAY ==
[2025-05-15 15:58] VITALS: BP 148/95
[2025-05-15 16:36] VITALS: BMI 17.4
--- NOTE | 2025-05-15 17:17 | ED.GENMED ---
History of Present Illness
<Socorro Portillo PA-C - Last Filed: 05/15/25 20:45>
General
Chief Complaint: Skin Problem
Source: patient
Exam Limitations: none
Time Seen by Provider: 05/15/25 16:49
History of Present Illness
History of Present Illness:
70yo iqtni-[id number] female with a prior history of CVA, hypertension, and seizures presenting for evaluation of a cat bite. Patient was playing with her cat last night and she was bitten on her right wrist. She developed redness surrounding
the wound today. She was seen at urgent care and was prescribed Augmentin. She has taken 1 dose thus far. Her redness has significantly worsened since her urgent care visit and is now streaking up to the level of her elbow. She denies any fevers
or chills. Cat is indoor only and up-to-date on rabies vaccinations. Her last tetanus vaccine was in 2023.
Past History
<Socorro Portillo PA-C - Last Filed: 05/15/25 20:45>
Past History
ED Past Medical History: HTN
ED Past Surgical History: Appendectomy and Gynecological (Hysterectomy, Endometriosis)
Social History
Tobacco: Former smoker
Alcohol: Former
Personal:
Living: with family
Phy Exam
<Socorro Portillo PA-C - Last Filed: 05/15/25 20:45>
General Physical Exam
General Presentation: well appearing and no apparent distress
General Skin: warm and dry
General Habitus: normal
General Mental: alert
ENT Exam
ENT Exam: normocephalic
Pulmonary Exam
Pulmonary Exam: no respiratory distress
Neurological Exam
Neurological Exam: alert
Thomas Coma Scale
Eye Opening: Spontaneous
Verbal Response: Oriented
Motor Response: Obeys Commands
GCS Total Score: 15
Skin Exam
Skin Exam: warm/dry and other (Puncture wound noted to palmar radial aspect of R wrist with surrounding erythema/warmth with red streaking up arm to the level of the elbow consistent with lymphangitis. No crepitus or pain out of proportion. Scar
from prior orthopedic surgery present. 2+ ulnar pulse.)
Psychiatric Exam
Psychiatric Exam: normal mood/affect
Course
<Socorro Portillo PA-C - Last Filed: 05/15/25 20:45>
Orders/Labs/Results
Orders:
Orders
05/15/25 Lunch
Regular
At Your Request: Full Participation
05/15/25 17:15
0.9% Sodium Chloride 1000 ml [Nss] 1,000 ml IV BOLUS
05/15/25 17:34
C-Reactive Protein Urgent
Comment: ADD ON
Complete Blood Count/With Diff Urgent
Comprehensive Metabolic Panel Urgent
Erythrocyte Sed Rate Urgent
Comment: ADD ON
Lactate Level [Lactic Acid] Urgent
Blood Culture Q30M
LAVON Source: Blood/Venous
Specimen Description:
Blood Culture Q30M
LAVON Source: Blood/Venous
Specimen Description:
05/15/25 17:39
Forearm, Right 2 View [CR Forearm - Right 2 View] Urgent
Comment:
Reason For Exam: cat bite on wrist redness to elbow
05/15/25 17:40
Add On- LAB Routine
Tests Added?: ESR, CRP
CR Hand - Right 2 Views Urgent
Comment:
Reason For Exam: cat bite on wrist redness to elbow
05/15/25 17:44
Admit/Transfer Patient As Directed
Co-Sign Provider:
Level of Care: Inpatient admission
Assign to:: Medical/Surgical
Physician / Group: Noreen
Diagnosis: Cellulitis, lymphangitis
Reason for Hospitalization: Cellulitis, lymphangitis
Expected length of stay greater than two midnights?: Yes
ELOS- Estimated Length of Stay in days: 2
I certify the patient meets the requirements for IP care: Yes
PRN Pain Medication Management As Directed
May give lesser potent ordered pain med per pt: Yes
preference::
Protocol:: Medication orders for pain may be administered in a
manner that supports deferring to patient preference
when the pt is:
- Requesting an ordered lesser potent pain medication.
Least to most potent pain medications are defined
as: acetaminophen < NSAID < tramadol < opioids
(morphine, oxycodone, hydromorphone).
- Requesting a lesser dose of the same medication IF
ORDERED.
- Requesting a less intrusive route of administration
if both routes are prescribed by the provider (PO <
IV).
05/15/25 17:45
Code Status As Directed
Resuscitation Status: Full Code
05/15/25 19:35
Bisacodyl [Dulcolax] 10 mg RECTAL [id number] PRN
Polyethylene Glycol Powder [Miralax] 17 grams PO DAILYPRN PRN
05/15/25 19:35
Activity As Directed
Activity Level: Out of Bed-Early Mobility
Vital Signs As Directed
Frequency: Per unit guidelines
DX Deep Vein Thrombosis Video Routine
05/15/25 19:48
Docusate W/Senna [Senokot-S] 1 tablet PO BIDPRN PRN
05/15/25 19:49
Acetaminophen [Tylenol] 650 mg PO Q4HPRN PRN
05/16/25 00:00
Ampicillin/Sulbactam 3 G [Unasyn] 3 gm 0.9% Sodium Chloride 100 ml [Nss] 100 ml IV Q6
Heparin 5,000 units SC Q8
05/16/25 06:00
Complete Blood Count/With Diff IN AM
Comprehensive Metabolic Panel IN AM
05/16/25 08:00
Amlodipine [Norvasc] 10 mg PO DAILY
Citalopram [Celexa] 20 mg PO DAILY
Levetiracetam [Keppra] 500 mg PO DAILY
Lisinopril [Zestril] 40 mg PO DAILY
Abnormal Lab Results
05/15/25
17:34
RBC 4.04 L 10^6/uL
(4.20-5.40)
Hct 36.4 L %
(37.0-47.0)
Absolute Lymphs (auto) 1.0 L 10^3/uL
(1.2-3.4)
Neutrophils % 78.1 H %
(42.2-75.2)
Lymphocytes % 12.8 L %
(20.5-51.1)
Lactic Acid 0.6 L mmol/L
(0.7-2.0)
Alkaline Phosphatase 33 L U/L
(38-126)
05/15/25 17:34
05/15/25 17:34
Vital Signs
Initial and Last Documented VS:
Initial Vital Signs
Temp Pulse Resp BP Pulse Ox
98.4 F 62 18 148/95 98
05/15/25 15:58 05/15/25 15:58 05/15/25 15:58 05/15/25 15:58 05/15/25 15:58
Last Documented Vital Signs
Temp Pulse Resp BP Pulse Ox
98.5 F 70 14 149/87 97
05/15/25 19:25 05/15/25 19:25 05/15/25 19:25 05/15/25 19:25 05/15/25 19:25
<Kwame Wild MD - Last Filed: 05/15/25 17:21>
Orders/Labs/Results
Orders:
Orders
05/15/25 Lunch
Regular
At Your Request: Full Participation
05/15/25 17:15
0.9% Sodium Chloride 1000 ml [Nss] 1,000 ml IV BOLUS
05/15/25 17:34
C-Reactive Protein Urgent
Comment: ADD ON
Complete Blood Count/With Diff Urgent
Comprehensive Metabolic Panel Urgent
Erythrocyte Sed Rate Urgent
Comment: ADD ON
Lactate Level [Lactic Acid] Urgent
Blood Culture Q30M
LAVON Source: Blood/Venous
Specimen Description:
Blood Culture Q30M
LAVON Source: Blood/Venous
Specimen Description:
05/15/25 17:39
Forearm, Right 2 View [CR Forearm - Right 2 View] Urgent
Comment:
Reason For Exam: cat bite on wrist redness to elbow
05/15/25 17:40
Add On- LAB Routine
Tests Added?: ESR, CRP
CR Hand - Right 2 Views Urgent
Comment:
Reason For Exam: cat bite on wrist redness to elbow
05/15/25 17:44
Admit/Transfer Patient As Directed
Co-Sign Provider:
Level of Care: Inpatient admission
Assign to:: Medical/Surgical
Physician / Group: Noreen
Diagnosis: Cellulitis, lymphangitis
Reason for Hospitalization: Cellulitis, lymphangitis
Expected length of stay greater than two midnights?: Yes
ELOS- Estimated Length of Stay in days: 2
I certify the patient meets the requirements for IP care: Yes
PRN Pain Medication Management As Directed
May give lesser potent ordered pain med per pt: Yes
preference::
Protocol:: Medication orders for pain may be administered in a
manner that supports deferring to patient preference
when the pt is:
- Requesting an ordered lesser potent pain medication.
Least to most potent pain medications are defined
as: acetaminophen < NSAID < tramadol < opioids
(morphine, oxycodone, hydromorphone).
- Requesting a lesser dose of the same medication IF
ORDERED.
- Requesting a less intrusive route of administration
if both routes are prescribed by the provider (PO <
IV).
05/15/25 17:45
Code Status As Directed
Resuscitation Status: Full Code
05/15/25 19:35
Bisacodyl [Dulcolax] 10 mg RECTAL [id number] PRN
Polyethylene Glycol Powder [Miralax] 17 grams PO DAILYPRN PRN
05/15/25 19:35
Activity As Directed
Activity Level: Out of Bed-Early Mobility
Vital Signs As Directed
Frequency: Per unit guidelines
DX Deep Vein Thrombosis Video Routine
05/15/25 19:48
Docusate W/Senna [Senokot-S] 1 tablet PO BIDPRN PRN
05/15/25 19:49
Acetaminophen [Tylenol] 650 mg PO Q4HPRN PRN
05/16/25 00:00
Ampicillin/Sulbactam 3 G [Unasyn] 3 gm 0.9% Sodium Chloride 100 ml [Nss] 100 ml IV Q6
Heparin 5,000 units SC Q8
05/16/25 06:00
Complete Blood Count/With Diff IN AM
Comprehensive Metabolic Panel IN AM
05/16/25 08:00
Amlodipine [Norvasc] 10 mg PO DAILY
Citalopram [Celexa] 20 mg PO DAILY
Levetiracetam [Keppra] 500 mg PO DAILY
Lisinopril [Zestril] 40 mg PO DAILY
Abnormal Lab Results
05/15/25
17:34
RBC 4.04 L 10^6/uL
(4.20-5.40)
Hct 36.4 L %
(37.0-47.0)
Absolute Lymphs (auto) 1.0 L 10^3/uL
(1.2-3.4)
Neutrophils % 78.1 H %
(42.2-75.2)
Lymphocytes % 12.8 L %
(20.5-51.1)
Lactic Acid 0.6 L mmol/L
(0.7-2.0)
Alkaline Phosphatase 33 L U/L
(38-126)
05/15/25 17:34
05/15/25 17:34
Vital Signs
Initial and Last Documented VS:
Initial Vital Signs
Temp Pulse Resp BP Pulse Ox
98.4 F 62 18 148/95 98
05/15/25 15:58 05/15/25 15:58 05/15/25 15:58 05/15/25 15:58 05/15/25 15:58
Last Documented Vital Signs
Temp Pulse Resp BP Pulse Ox
98.5 F 70 14 149/87 97
05/15/25 19:25 05/15/25 19:25 05/15/25 19:25 05/15/25 19:25 05/15/25 19:25
<Socorro Portillo PA-C - Last Filed: 05/15/25 20:45>
MDM/Problems Addressed
Differential Diagnosis Includes:
70yoF here after a cat bite to R wrist yesterday. Developed redness today which has rapidly progressed despite taking Augmentin. No f/c and vitals stable. There is cellulitis on exam with lymphangitis. No clinical evidence of abscess, NSTI, or
septic arthritis
Septic workup ordered including blood cultures and lactate. Will initiate IV Unasyn and admit for further management.
<Socorro Portillo PA-C - Last Filed: 05/15/25 20:45>
*Pulse Oximetry
SaO2: 98
Oxygen Mode of Delivery: Room air
Patient hypoxic: no
*Critical Care Note
Total Time (30-74mins, 75-104mins- exclusive of procedures): Not Applicable
ED Attending Note
<Socorro Portillo PA-C - Last Filed: 05/15/25 20:45>
-
Portions of this chart may have been created with voice recognition software.� Occasional wrong word or��sound alike� substitutions may have occurred due to the inherent limitations of voice recognition software.
<Kwame Wild MD - Last Filed: 05/15/25 17:21>
ED Attending Note
Patient seen and examined by attending physician: Yes
I performed the substantive portion of visit, reviewed & personally made and approve the management plan that is documented in note by myself or SALVATORE.: Yes
ED Attending Note:
I have seen and evaluated the patient with a [id number] encounter. I have spoken to the [SALVATORE] and involved in the medical history, the physical exam, medical decision making.
Evaluation and management service: agree unless noted differently below.
Results interpretation: agree unless noted differently below.
70-year-old woman presenting to the emergency ferment after cat bite. Patient states that she was bit by her own cat last night. She developed some redness and swelling. This morning she went to an urgent care. They sent her here for further
evaluation. Patient states that she did take a dose of her Augmentin. However the redness is not spreading past where urgent care marked it. No fevers or chills. No numbness tingling. Patient is up-to-date on her immunizations as well as. On
my evaluation patient is resting comfortably. She does have erythema to the palmar aspect of her wrist with streaking up past her AC. No significant wrist swelling. Full range of motion. No fluctuance. No drainage from the site of the bite.
Given how rapidly it is spreading patient will benefit from IV antibiotics. Will discuss with hospitalist for admission.
Discharge Plan
Departure
Patient Disposition: Admit
Date of Disposition: 05/15/25
Time of Disposition: 17:21
Presentation/result/management discussed w/ accepting MD/DO: Hospitalist
Discharge Problem:
Cat bite of right wrist with infection, Lymphangitis of upper extremity
Interventions
Interventions:
*General Assessment Last Done: 05/15/25 16:38
*Neglect/Abuse Screening Last Done: 05/15/25 16:38
*ED COVID-19 Vaccine History Last Done: 05/15/25 16:38
*ED Influenza Vaccine History Last Done: 05/15/25 16:38
[facility] Fall Risk Assessment Tool Last Done: 05/15/25 15:55
*Risk Screen - Suicide (C-SSRS) Last Done: 05/15/25 16:00
*Nursing Disposition Last Done: 05/15/25 19:35
ED-Skin Assessment Last Done: 05/15/25 18:30
Discharge Date and Time
Discharge Date/Time: 05/15/25 19:35
--- NOTE | 2025-05-15 17:36 | HPS.HSE ---
Family Physician
-
Family Physician: Delphine Srinivasan
Chief Complaint
-
R hand cat byte
History of Present Illness
70yo F with PMHx of HTN, seizure d/o came with rapidly progressing pain and redness spreading from the cat bite of her home cat (fully vaccinated) to the ventral R wrist. Bite occurred less then 24h before presentation, but redness spreaded towards
the elbow in streak-like fashion. No fevers or chills noted. No purulence at the place of bite.
PAtient took only 1 dose of Augmentin prescribed in urgent care today
Medical History
Past Medical History
Past Medical History: Reports Other
Additional Past Medical History:
see above
Past Surgical History: Reports None
Social History
Tobacco: Former Smoker
Alcohol: Former
Drug: None
Family History
Family History: Not pertinent
Allergies / Home Medications
Allergies reflects when Allergies were last updated in [employer].
Home Medications with original date entered in [employer]
Allergy/Medication List:
Allergies
Allergy/AdvReac Type Severity Reaction Status Date / Time
doxycycline Allergy Unknown Verified 05/15/25 16:27
erythromycin base Allergy Unknown Verified 05/15/25 16:27
Home Medications
citalopram 20 mg tablet 30 mg PO DAILY 02/19/20
melatonin 5 mg tablet 10 mg PO HS 02/24/20
multivitamin with folic acid 400 mcg tablet (Tab-A-Delilah) 1 tab PO DAILY 02/24/20
amlodipine 10 mg tablet 10 mg PO DAILY 10/21/23
bimatoprost 0.01 % eye drops (Lumigan) 1 drp BOTH EYES QPM 10/21/23
calcium carbonate 500 mg PO DAILY 10/21/23
labetalol 100 mg tablet 100 mg PO BID 10/21/23
levetiracetam 500 mg tablet 500 mg PO DAILY 10/21/23
lisinopril 40 mg tablet 40 mg PO DAILY 10/21/23
semaglutide 0.25 mg or 0.5 mg (2 mg/3 mL) subcutaneous pen injector (Ozempic) 0.5 mg SC CHAPMAN 10/21/23
Review of Systems
-
History Source: Patient
A 12 point ROS was completed and negative except as noted: Yes
Musculoskeletal: Reports See HPI
Physical Exam
Vital Signs
Vital Signs
Temp Pulse Resp BP Pulse Ox
98.4 F 62 18 148/95 98
05/15/25 15:58 05/15/25 15:58 05/15/25 15:58 05/15/25 15:58 05/15/25 17:19
Physical Exam
General: Well Developed, Well Nourished and No Apparent Distress
HEENT: NormoCephalic, Anicteric and Moist mucous membranes
Respiratory: Clear; No Wheezes or Crackles
Cardiac: S1/S2 and Regular Rhythm; No Tachycardia
GI: Soft, Non Tender and Non Distended
Musculoskeletal: No Clubbing, No Cyanosis and No Edema
Skin: Warm and Other (see HPI)
Neuro: Awake, Alert, Oriented and AO x 3
Psych: Calm
Data Reviewed
-
Lab Data: Other
Impression/Plan
-
A/P:
ALL LABS STILL NOT AVAILABLE (PENDING RESULT) AT THE TIME OF ADMISSION
#R wrist cat bite with rapidly progressing lymphangitis
COnt Unasyn
Bcx
XR R wrist/Forearm
tylenol
ESR/CRP
#Seizure d/o
#Essential HTN
Cont home meds
Seizure precautions
DVT ppx hep
Full code
I have spent at least 75min reviewing hcart, test results, communication with consultants and providing direct patient care
[2025-05-15 18:12] LABS: Hematocrit 36.4 % (37.0-47.0); Hemoglobin 12.3 g/dL (12.0-16.0); Mean Corp Hgb Conc. 33.8 g/dL (33.0-37.0); Mean Corpuscular Volume 90.1 fL (81.0-99.0); Nucleated Red Blood Cells % 0 %; Platelet Count 240 10^3/uL (130-400); Red Cell Dist. Width 13.5 % (11.5-14.5)
[2025-05-15] MEDS: UNASYN IV (18:47)
[2025-05-15] MEDS: NSS 1000 IV (18:47)
[2025-05-15 18:51] LABS: ALT (SGPT) 13 U/L (0-35); AST (SGOT) 18 U/L (14-36); Albumin 4.5 g/dl (3.5-5.0); Alkaline Phosphatase 33 U/L (38-126); Blood Urea Nitrogen 16 mg/dl (7-17); Calcium 9.5 mg/dl (8.4-10.2); Carbon Dioxide 27 mmol/L (22-30); Chloride 105 mmol/L (98-107); Estimated Creatinine Clearance 55 ml/min; Glucose 85 mg/dl (70-99); Potassium 4.1 mmol/L (3.5-5.1); Sodium 138 mmol/L (135-145); Total Protein 7.1 g/dl (6.3-8.2); eGFR > 60.00
[2025-05-15 18:53] LABS: C-Reactive Protein < 5.00 mg/L (0.0-10.00)
[2025-05-15 19:11] VITALS: BP 148/87
[2025-05-15 19:25] VITALS: BP 149/87; BMI 23.8
--- NOTE | 2025-05-15 19:30 | PTCARENOTE ---
pt arrived to 2S from ED @ 1930. Pt ambulated safely to the bed w/o difficulty. Pt A&Ox3, VSS. Admission assessment complete. Reviewed plan of care with pt, all questions answered. Pt oriented to room, call mendez within reach, bed locked in lowest
position. Care ongoing.
[2025-05-15 23:15] VITALS: BP 127/82
[2025-05-16] MEDS: HEPARIN 5000 UNITS SC ×4 (00:34→23:37)
[2025-05-16] MEDS: UNASYN IV ×5 (00:34→23:38)
[2025-05-16 06:00] VITALS: BMI 23.8
[2025-05-16 06:32] LABS: Hematocrit 33.0 % (37.0-47.0); Hemoglobin 11.0 g/dL (12.0-16.0); Mean Corp Hgb Conc. 33.3 g/dL (33.0-37.0); Mean Corpuscular Volume 90.2 fL (81.0-99.0); Nucleated Red Blood Cells % 0 %; Platelet Count 195 10^3/uL (130-400); Red Cell Dist. Width 13.4 % (11.5-14.5)
[2025-05-16 06:56] LABS: ALT (SGPT) 11 U/L (0-35); AST (SGOT) 16 U/L (14-36); Albumin 3.8 g/dl (3.5-5.0); Alkaline Phosphatase 27 U/L (38-126); Blood Urea Nitrogen 11 mg/dl (7-17); Calcium 8.6 mg/dl (8.4-10.2); Carbon Dioxide 27 mmol/L (22-30); Chloride 108 mmol/L (98-107); Estimated Creatinine Clearance 66 ml/min; Glucose 91 mg/dl (70-99); Potassium 4.3 mmol/L (3.5-5.1); Sodium 139 mmol/L (135-145); Total Protein 6.1 g/dl (6.3-8.2); eGFR > 60.00
[2025-05-16 07:22] VITALS: BP 127/80
[2025-05-16] MEDS: KEPPRA 500 MG PO (08:17)
[2025-05-16] MEDS: ZESTRIL 40 MG PO (08:17)
[2025-05-16] MEDS: NORVASC 10 MG PO (08:17)
[2025-05-16] MEDS: CELEXA 20 MG PO (08:18)
--- NOTE | 2025-05-16 09:14 | CM ---
game breeding farm manager reviewed patient chart and met with patient and patient lives with spouse in a one story home, with 3 steps to enter, patient is independent with adl's and ambulation, no dme, home no needs when stable.
PCP: Sophia Bailey
Pharmacy: [facility]
--- NOTE | 2025-05-16 11:08 | W.PN.HOSP.TC ---
Today's Communication/Plan
-
Cont 1 more day IV Abx
If swelling worsens or persists tomororw - will ask surgical team to eval for bedside incision
Assessment / Plan
Assessment / Plan
70yo F with PMHx of HTN, seizure d/o came with rapidly progressing pain and redness spreading from the cat bite of her home cat (fully vaccinated) to the ventral R wrist. Bite occurred less then 24h before presentation, but redness spreaded towards
the elbow in streak-like fashion. No fevers or chills noted. No purulence at the place of bite, however swelling persists
A/P:
#R wrist cat bite with rapidly progressing lymphangitis
COnt Unasyn
Bcx
XR R wrist/Forearm: Soft tissue swelling. No subcutaneous emphysema. No radiopaque foreign body. No radiographic evidence of acute fracture or osteomyelitis.
tylenol
ESR/CRP WNL
#Seizure d/o
#Essential HTN
Cont home meds
Seizure precautions
DVT ppx hep
Full code
I have spent at least 51min reviewing hcart, test results, communication with consultants and providing direct patient care
Anticipated Discharge: 24 - 48 hours
Subjective/Interval History
-
Date of Service: May 16, 2025
Objective Data
-
Labs:
Laboratory Results
05/16/25
06:17
WBC 4.8
Hgb 11.0 L
Hct 33.0 L
Plt Count 195
Sodium 139
Potassium 4.3
Chloride 108 H
Carbon Dioxide 27
BUN 11
Creatinine 0.7
Glucose 91
Calcium 8.6
Total Bilirubin 0.6
AST 16
ALT 11
Alkaline Phosphatase 27 L
Vital Signs:
Vital Signs
Temp Pulse Resp BP Pulse Ox
97.6 F 67 16 127/80 96
05/16/25 07:22 05/16/25 07:22 05/16/25 07:22 05/16/25 07:22 05/16/25 07:22
I&O
05/15/25 05/16/25 05/17/25
06:59 06:59 06:59
Intake Total 770 / 770
Balance 770 / 770
Review of Systems
-
History Source: Patient
All other systems: Reviewed and negative
Physical Exam
-
General: Comfortable
Musculoskeletal: Other (decreased redness, now to to only distal 1/3 of forearm, swelling at the place of the bite persist)
Neuro: Awake, Alert, Oriented and AO x 3
Psych: Calm
[2025-05-16 15:02] VITALS: BP 123/74
[2025-05-16] MEDS: TRANDATE 100 MG PO (21:07)
[2025-05-16 23:00] VITALS: BP 124/62
[2025-05-17] MEDS: UNASYN IV ×2 (05:24→12:07)
[2025-05-17 07:00] VITALS: BP 129/71
[2025-05-17] MEDS: KEPPRA 500 MG PO (08:17)
[2025-05-17] MEDS: NORVASC 10 MG PO (08:17)
[2025-05-17] MEDS: CELEXA 20 MG PO (08:17)
[2025-05-17] MEDS: ZESTRIL 40 MG PO (08:17)
[2025-05-17] MEDS: HEPARIN 5000 UNITS SC ×2 (08:17→15:48)
[2025-05-17] MEDS: VANCOCIN 530 MG IV (10:10)
--- NOTE | 2025-05-17 10:46 | CON.GS ---
Consultation
-
Date/Time Consultation Performed: 05/17/25 1015
Requesting Provider: Noreen
Medical History
-
Chief Complaint: right wrist wound
History of Present Illness:
Ms Hodgson is a 70 yo female with a h/o right radius ORIF who was bitten by her cat to the right ulnar side of the volar aspect of her wrist on 05/14/25. She was seen at urgent care and started on Augmentin but presented through the ED on 05/15/25 as
she noted worsening ascending erythema up the volar aspect of her arm towards the antecubital fossa. She was initiated on IV abx and is seen today in consult for persistent erythema although somewhat improved from prior as well as a site near the
bit pierre with induration/fluctuance. She denies fevers or chills.
Past Medical History
Past Medical History: HTN, Psychiatric (depression) and Other (osteoporosis)
Past Surgical History: Orthopedic (ORIF right distal radius)
Social History
Tobacco: Former Smoker
Alcohol: None
Personal:
Living: With Family
Family History
Family History: Reviewed & Not Pertinent
Allergies / Home Medications
Allergy/AdvReac Type Severity Reaction Status Date / Time
doxycycline Allergy Unknown Verified 05/15/25 16:27
erythromycin base Allergy Unknown Verified 05/15/25 16:27
�Medication �Instructions �Recorded �Confirmed �Type
citalopram 20 mg tablet 20 mg PO DAILY Mental 02/19/20 05/15/25 History
Health/Anxiety
amlodipine 10 mg tablet 10 mg PO DAILY Blood Pressure 10/21/23 05/15/25 History
labetalol 100 mg tablet 100 mg PO HS Blood Pressure 10/21/23 05/15/25 History
levetiracetam 500 mg tablet 500 mg PO DAILY Seizures 10/21/23 05/15/25 History
lisinopril 40 mg tablet 40 mg PO DAILY Blood Pressure 10/21/23 05/15/25 History
amoxicillin 875 mg-potassium 1 tab PO BID Infection 05/15/25 05/15/25 History
clavulanate 125 mg tablet
denosumab 60 mg/mL subcutaneous 60 mg SC [id number] BONE 05/15/25 05/15/25 History
syringe (Prolia)
naproxen sodium 220 mg tablet 440 mg PO DAILYPRN PRN mild pain 05/15/25 05/15/25 History
(Aleve)
semaglutide 1 mg/dose (4 mg/3 mL) 1 mg SC Q2W Diabetes 05/15/25 05/15/25 History
subcutaneous pen injector (Ozempic)
therapeutic multivitamin 1 tab PO DAILY PRN supplement 05/15/25 05/15/25 History
Review of Systems
-
History Source: Patient
All other systems: Negative unless noted
A 10 point review of systems was completed, and was negative except as per HPI.
Physical Exam
Vital Signs
Temp Pulse Resp BP Pulse Ox
98.2 F 66 16 129/71 97
05/17/25 07:00 05/17/25 07:00 05/17/25 07:00 05/17/25 07:00 05/17/25 07:00
05/16/25 05/17/25 05/18/25
06:59 06:59 06:59
Actual Weight 64.864 kg
Body Mass Index (BMI) 23.8
Lab Results
05/16/25 23:06
05/16/25 06:17
WBC 4.8 10^3/uL (4.8-10.8) 05/16/25 06:17
Hgb Cancelled 05/16/25 23:06
Hct Cancelled 05/16/25 23:06
Plt Count 195 10^3/uL (130-400) 05/16/25 06:17
Abs Immat Gran (auto) 0.0 10^3/uL (0-0.05) 12/26/25 06:17
Neutrophils % 60.5 % (42.2-75.2) 05/16/25 06:17
Physical Exam
General: Well Developed and Well Nourished
HEENT: Normocephalic
Skin: Warm and Other (ascending erythema from the volar aspect of the right wrist with bite puncture to the ulnar aspect of the wrist)
Data Reviewed
-
Radiology: Image Personally Visualized and interpreted, Report Reviewed by me, Discussed with Physician and Discussed with Patient
Labs: Labs Reviewed by me, Discussed with Physician, Discussed with Patient and Discussed with Family
Old Records: Reviewed
Assessment / Plan
-
Ms Hodgson is a 70 yo female with a h/o right radius ORIF who was bitten by her cat to the right ulnar side of the volar aspect of her wrist on 05/14/25. She was seen at urgent care and started on Augmentin but presented through the ED on 05/15/25 as
she noted worsening ascending erythema up the volar aspect of her arm towards the antecubital fossa. She was initiated on IV abx and is seen today in consult for persistent erythema although somewhat improved from prior as well as a site near the
bit pierre with induration/fluctuance. No leukocytosis or fevers. VSS. XR with soft tissue swelling, no fracture. Hardware present to the wrist.
Plan:
Will preform I&D at bedside
C/W IV abx
Will send culture at bedside
No current evidence of hardware involvement.
--- NOTE | 2025-05-17 10:54 | W.IMMPOSTOP ---
Surgical Immed Post Op Note
-
Primary Surgeon: Santhosh Hughes MD
Pre-op Diagnosis: Right wrist abscess
Post-op Diagnosis: Same
Procedure Performed: Incision and drainage of right wrist abscess
Anesthesia Type: local
Specimen / Cultures: wound culture
Estimated Blood Loss: 2cc
Complications: None
Operative Findings: Small amount of purulence
--- NOTE | 2025-05-17 11:02 | W.PN.HOSP.TC ---
Today's Communication/Plan
-
IV Linezolid
I&D and Cx
Assessment / Plan
Assessment / Plan
70yo F with PMHx of HTN, hx of R wrist Fx s/p repair by , seizure d/o came with rapidly progressing pain and redness spreading from the cat bite of her home cat (fully vaccinated) to the ventral R wrist. Bite occurred less then 24h before
presentation, but redness spread towards the elbow in streak-like fashion. No fevers or chills noted. No purulence at the place of bite, however swelling persisted and now with new fluid - GenSx did bedside I&D and sent Cx. Plan for ABx afterwards,
possibly as outpatient as redness already was decreasing.
A/P:
#R wrist cat bite with rapidly progressing lymphangitis
COnt Unasyn, developed itching from Vanco -stopped and added Benadryl. Add Linezolid pedning wound Cx
Discuss with
Bcx
XR R wrist/Forearm: Soft tissue swelling. No subcutaneous emphysema. No radiopaque foreign body. No radiographic evidence of acute fracture or osteomyelitis. fusion plate along the volar aspect of the distal radius
GenSx for I&D, send Cx
tylenol
ESR/CRP WNL
#Seizure d/o
#Essential HTN
Cont home meds
Seizure precautions
DVT ppx hep
Full code
I have spent at least 51min reviewing hcart, test results, communication with consultants and providing direct patient care
Anticipated Discharge: Within 24 hours
Subjective/Interval History
-
Date of Service: May 17, 2025
Objective Data
-
Labs:
Laboratory Results
05/16/25
23:06
Hgb Cancelled
Hct Cancelled
Vital Signs:
Vital Signs
Temp Pulse Resp BP Pulse Ox
98.2 F 66 16 129/71 97
12/27/25 07:00 05/17/25 07:00 05/17/25 07:00 05/17/25 07:00 05/17/25 07:00
I&O
05/16/25 05/17/25 05/18/25
06:59 06:59 06:59
Intake Total 770 / 770 1969
Balance 770 / 770 1969
Review of Systems
-
History Source: Patient
All other systems: Reviewed and negative
Physical Exam
-
General: No Apparent Distress and Comfortable
Respiratory: Clear to Auscultation
GI: Soft, Nontender and Nondistended
Musculoskeletal: Other (redness area decreased, but swelling over the bite site more)
Skin: Warm
Neuro: Awake, Alert, Oriented and AO x 3
Psych: Calm
[2025-05-17] MEDS: TYLENOL 650 MG PO ×2 (11:06→22:50)
[2025-05-17] MEDS: BENADRYL 12.5 MG IV (12:06)
[2025-05-17] MEDS: ZYVOX 600 MG 300 IV (12:49)
[2025-05-17 15:10] VITALS: BP 126/73
--- NOTE | 2025-05-17 16:17 | W.PN.UPDATE ---
Update Note
Progress Note Update
Unfortunately with Citalopram - Linezolid will not be a safe choice. Prelim Gram stain neg for organism, so reasonable to switch to combination of Bactrim and Flagyl PO and follow up if improvement persist overnight. Combination selected due to MRSA
coverage. Will instrcut patient to do BMP in 3-4 days with PCP to control ptassium and renal function.
[2025-05-17] MEDS: BACTRIM DS 800 MG/160 MG 1 TABLET PO (19:33)
[2025-05-17] MEDS: TRANDATE 100 MG PO (22:48)
[2025-05-17 23:00] VITALS: BP 143/85
[2025-05-18] MEDS: FLAGYL 500 MG PO ×2 (00:29→08:35)
[2025-05-18] MEDS: HEPARIN 5000 UNITS SC (00:29)
[2025-05-18 07:00] VITALS: BP 122/83
[2025-05-18 07:42] VITALS: BP 122/83
[2025-05-18 08:17] LABS: Hematocrit 34.0 % (37.0-47.0); Hemoglobin 11.4 g/dL (12.0-16.0); Mean Corp Hgb Conc. 33.5 g/dL (33.0-37.0); Mean Corpuscular Volume 91.9 fL (81.0-99.0); Nucleated Red Blood Cells % 0 %; Platelet Count 215 10^3/uL (130-400); Red Cell Dist. Width 13.3 % (11.5-14.5)
--- NOTE | 2025-05-18 08:29 | W.PN.HOSP.TC ---
Today's Communication/Plan
-
dc
Assessment / Plan
Assessment / Plan
70yo F with PMHx of HTN, hx of R wrist Fx s/p repair by , seizure d/o came with rapidly progressing pain and redness spreading from the cat bite of her home cat (fully vaccinated) to the ventral R wrist. Bite occurred less then 24h before
presentation, but redness spread towards the elbow in streak-like fashion. No fevers or chills noted. No purulence at the place of bite, however swelling persisted and now with new fluid - GenSx did bedside I&D and sent Cx. Plan for ABx afterwards
and follow up with as discussed with him over the [employer]. Redness much decreased on the day of discharge. Recommended for 7 days of additional Abx and BMP and PCP in 4-5 days to assess if extension of the course needed and to check BNP.
Low potassium diet recommended
A/P:
#R wrist cat bite with rapidly progressing lymphangitis
COnt Unasyn, developed itching from Vanco -stopped and added Benadryl. Add Linezolid pedning wound Cx
Discuss with : outpatient f/u
Bcx NTD
XR R wrist/Forearm: Soft tissue swelling. No subcutaneous emphysema. No radiopaque foreign body. No radiographic evidence of acute fracture or osteomyelitis. fusion plate along the volar aspect of the distal radius
GenSx for I&D on 05/17/12, Cx NTS with neg gram stain. Redness continbued to improve on Bactrim and Flagyl
tylenol
ESR/CRP WNL
#Seizure d/o
#Essential HTN
Cont home meds
Seizure precautions
DVT ppx hep
Full code
I have spent at least 51min reviewing hcart, test results, communication with consultants and providing direct patient care
Anticipated Discharge: Today
Subjective/Interval History
-
Date of Service: May 18, 2025
Objective Data
-
Labs:
Laboratory Results
05/18/25
07:23
WBC 3.3 L
Hgb 11.4 L
Hct 34.0 L
Plt Count 215
Vital Signs:
Vital Signs
Temp Pulse Resp BP Pulse Ox
98 F 60 16 122/83 97
05/18/25 07:00 05/18/25 07:00 05/18/25 07:00 05/18/25 07:00 05/18/25 07:00
I&O
05/17/25 05/18/25 05/19/25
06:59 06:59 06:59
Intake Total 1969
Balance 1969
Review of Systems
-
All other systems: Reviewed and negative
Constitutional: Reports No Symptoms
Physical Exam
-
General: No Apparent Distress
GI: Soft, Nontender and Nondistended
Skin: Other (minimal redness around the site of I&D, no new drinage)
Neuro: Awake, Alert, Oriented and AO x 3
Psych: Calm
[2025-05-18] MEDS: CELEXA 20 MG PO (08:35)
[2025-05-18] MEDS: KEPPRA 500 MG PO (08:35)
[2025-05-18] MEDS: NORVASC 10 MG PO (08:35)
[2025-05-18] MEDS: ZESTRIL 40 MG PO (08:35)
--- NOTE | 2025-05-18 08:36 | W.DCSUMMARY ---
Discharge Summary
Discharge Data
Date of Admission: 05/15/25
Date of Discharge: 05/18/25
-
Pending Results: No
Hospital Course
70yo F with PMHx of ostheoporosis, HTN, hx of R wrist Fx s/p repair by , seizure d/o came with rapidly progressing pain and redness spreading from the cat bite of her home cat (fully vaccinated) to the ventral R wrist. Bite occurred less
then 24h before presentation, but redness spread towards the elbow in streak-like fashion. No fevers or chills noted. No purulence at the place of bite, however swelling persisted and now with new fluid - GenSx did bedside I&D and sent Cx. Plan for
ABx afterwards and follow up with as discussed with him over the [employer]. Redness much decreased on the day of discharge. Recommended for 7 days of additional Abx and BMP and PCP in 4-5 days to assess if extension of the course needed and
to check BNP. Low potassium diet recommended. Medically stable for d/c home
I have spent at least 51min reviewing hcart, test results, communication with consultants and providing direct patient care
Patient was managed for:
#R wrist cat bite with rapidly progressing lymphangitis
#osteoporosis
#Seizure d/o
#Essential HTN
#PreDM
Discharge Plan
-
Patient Disposition: Home (Routine Discharge)
Discharge Diagnosis/Procedures: RUE cellulitis
Diet: Diabetic, Carb Controlled
Blood Work: BMP in 5 says with christina krishnan
Referrals:
Lance Chery MD [Active, Orthopedics] - in less than 1 week
Referral Note: Call to schedule appointment
Delphine Srinivasan MD [Family Provider, Internal Medicine] - in less than 1 week
Referral Note: BMP and assess if improving vs extension of Abx course
Additional Discharge Medication Instructions: Avoid alcohol while on Flagyl
Prescriptions:
New
sulfamethoxazole-trimethoprim [Bactrim DS] 800-160 mg tablet
1 tab PO Q12H Qty: 14 0RF
metronidazole 500 mg tablet
500 mg PO Q8H Qty: 21 0RF
Continued
citalopram 20 MG tablet
20 mg PO DAILY
levetiracetam 500 mg tablet
500 mg PO DAILY
amlodipine 10 mg tablet
10 mg PO DAILY
labetalol 100 mg tablet
100 mg PO HS
lisinopril 40 mg tablet
40 mg PO DAILY
therapeutic multivitamin Tablet
1 tab PO DAILY PRN (Reason: supplement)
naproxen sodium [Aleve] 220 mg Tablet
440 mg PO DAILYPRN PRN (Reason: mild pain)
Prolia 60 mg/mL Syringe
60 mg SC [id number]
Patient Comments:
05/15/2025, next dose due in May per pt.
Ozempic 1 mg/dose (4 mg/3 mL) Pen Injector
1 mg SC Q2W
Patient Comments:
05/15/2025, taken Q2W on Saturdays.
Discontinued
amoxicillin-pot clavulanate 875-125 mg Tablet
1 tab PO BID
Patient Comments:
05/15/2025, filled on 05/15/2025 and instructed to take 1 tablet BID for 7 days.
Discharge Orders:
Discharge Patient (As Directed); Ordered 05/18/25
Ordered By: Moshe Sorto
Discharge Date and Time
Print Language: AMHARIC
[2025-05-18] MEDS: BACTRIM DS 800 MG/160 MG 1 TABLET PO (08:38)
[2025-05-18] MEDS: HEPARIN SC (08:39)
--- NOTE | 2025-05-18 09:55 | CM ---
Patient is for discharge to home today no needs.
Plan; Home no needs.
[2025-05-18 10:28] VITALS: BP 127/73
--- NOTE | 2025-05-18 11:31 | W.PN.GS2 ---
Today's Communication / Plan
-
dispo planning
Assessment / Plan
-
70 yo female presenting with infection to right wrist d/t cat bite.
AFVSS
Mild leuukopenia
PPD #1 I&D with improvement in erythema, no further fluctuance
Plan:
Ok for d/c from surgical standpoint on oral abx, follow cx as outpatient
OP follow up with wrist surgeon if wound is worsening
Wound care reviewed with pt and spouse
Subjective Data
-
Date of Service: May 18, 2025
Pt seen and examined at bedside with Dr Hughes at 1015. Wrist feeling much better. Not much discomfort.
Objective Data
-
Intake and Output
05/17/25 05/18/25 05/19/25
06:59 06:59 06:59
Intake Total 1969 2640 / 2640 480 / 480
Balance 1969 2640 / 2640 480 / 480
Intake:
Oral fluids 1440 / 1440 1800 / 1800 480 / 480
IV fluids (Total) 50 / 50
IV piggybacks 480 / 480 840 / 840
Other:
Number of approximated SMALL 1
amounts of urine
Number of approximated MODERATE 2 2
amounts of urine
Number of approximated LARGE 1
amounts of urine
Vital Signs
Temp Pulse Resp BP Pulse Ox
97.5 F 60 18 127/73 99
05/18/25 10:28 05/18/25 10:28 05/18/25 10:28 05/18/25 10:28 05/18/25 10:28
Lab Results
05/18/25 07:23
05/16/25 06:17
Calcium 8.6 mg/dl (8.4-10.2) 05/16/25 06:17
Total Bilirubin 0.6 mg/dl (0.2-1.3) 05/16/25 06:17
AST 16 U/L (14-36) 05/16/25 06:17
ALT 11 U/L (0-35) 05/16/25 06:17
Alkaline Phosphatase 27 U/L (38-126) L 05/16/25 06:17
Total Protein 6.1 g/dl (6.3-8.2) L 05/16/25 06:17
Albumin 3.8 g/dl (3.5-5.0) 05/16/25 06:17
Physical Exam
-
Right volar aspect of wrist with minimal erythema, much improved. I&D site with minimal ssf on gauze pad, no purulence. No fluctuance or induration.
== END 2025-05-18 11:00 | disposition home or self-care (01) | DRG 603 ==
LOC: 2 SOUTH 17:56
PROVIDERS: Physician Assistant; ADMITTING PHYSICIAN Internal Medicine; CONSULT PHYSICIAN Surgery; EMERGENCY PHYSICIAN Student in an Organized Health Care Education/Training Program; FAMILY PHYSICIAN Internal Medicine
PROC: 0J9G0ZZ Drainage of Right Lower Arm Subcutaneous Tissue and Fascia, Open Approach (ICD-10-PCS; 2025-05-17)
DX: L03.113 Cellulitis of right upper limb (principal); L02.413 Cutaneous abscess of right upper limb; Z87.891 Personal history of nicotine dependence; W55.01XA Bitten by cat, initial encounter; S61.551A Open bite of right wrist, initial encounter; I10 Essential (primary) hypertension; G40.909 Epilepsy, unspecified, not intractable, without status epilepticus; Z79.899 Other long term (current) drug therapy
CPT/HCPCS: 73090; 73120; 80053; 83605; 85025; 85652; 86140; 87040; 87070; 87077; 87205; 96365; 99284; J2020